=== PATIENT | female | born 1985 | race Caucasian/White ===

== ENCOUNTER → 2019-01-12 | Outpatient (CLI) | payer BC ==
[~2019-01-12] MED LIST: LABE100 PO; METF500 PO; PRENATAL + DHA1 EAC1; Prilosec Otc20 MG PO; VIT D3 PO; VITAMIN B COMP1 EACH PO; XYZAL5 MG
[2019-01-16 15:14] LABS: HPV 16 Negative (Negative); HPV 18 Negative (Negative); HPV OTHER HR TYPES Negative (Negative)
== END | disposition home or self-care (01) ==
LOC: LAB 11:12 → LAB SHORT 11:12
PROVIDERS: Obstetrics & Gynecology
DX: Z01.419 Encounter for gynecological examination (general) (routine) without abnormal findings (principal)
CPT/HCPCS: 87624; G0123